=== PATIENT | male | born 1970 | race Two or more races ===

== ENCOUNTER 2018-04-22 16:51 | Inpatient (IN) | payer MEDICARE, MEDICAID ==
[~2018-04-22] VITALS: Ht 162.6 cm; Wt 80.0 kg
[~2018-04-22 16:51] MED LIST: ALBU18HF2 INH; ASPI-1265 PO; ATOR20TA66 PO; HCTZ25T PO; HYDR-4069 PO; HYDR50TA3 PO; LISI-600 PO; PRAZ1CAP5 PO
[2018-04-22 18:20] LABS: BASOPHILS % (AUTO) 0.1 % (0-1); EOSINOPHILS # (AUTO) 0.2 X10'3 (0-0.9); HEMATOCRIT 38.9 % (42.0-52.0); HEMOGLOBIN 13.4 g/dl (14.0-17.9); LYMPHOCYTES # (AUTO) 1.5 X10'3 (1.1-4.8); LYMPHOCYTES % (AUTO) 13.6 % (21-51); MEAN CORPUSCULAR HEMOGLOBIN 29.7 PG (27.0-31.0); MEAN CORPUSCULAR HGB CONC 34.5 % (33.0-36.5); MEAN CORPUSCULAR VOLUME 86.3 FL (78-98); MEAN PLATELET VOLUME 8.3 FL (7.4-10.4); MONOCYTES # (AUTO) 0.9 X10'3 (0-0.9); MONOCYTES % (AUTO) 8.5 % (2-12); NEUTROPHILS # (AUTO) 8.4 X10'3 (1.8-7.7); NEUTROPHILS % (AUTO) 75.8 % (42-75); PLATELET COUNT 332 X10'3 (140-440); RED BLOOD COUNT 4.51 X10'6 (4.70-6.10); RED CELL DISTRIBUTION WIDTH 13.4 % (11.5-14.5); WHITE BLOOD COUNT 11.1 X10'3 (4.5-11.0)
[2018-04-22 18:32] LABS: PARTIAL THROMBOPLASTIN TIME 23 SECONDS (22-32); PROTHROMBIN TIME 10.2 SECONDS (9.0-12.0)
[2018-04-22 18:36] LABS: ALANINE AMINOTRANSFERASE 47 U/L (12-78); ALBUMIN 3.4 G/DL (3.4-5.0); ALBUMIN/GLOBULIN RATIO 0.9 (1.1-1.5); ALKALINE PHOSPHATASE 76 IU/L (46-116); ANION GAP 8 (8-16); ASPARTATE AMINO TRANSFERASE 36 U/L (10-37); BILIRUBIN,TOTAL 0.3 MG/DL (0.1-1.0); BLOOD UREA NITROGEN 19 MG/DL (7-18); CHLORIDE 109 MMOL/L (99-107); CREATININE 1.19 MG/DL (0.60-1.10); GLUCOSE 93 MG/DL (70-104); SODIUM 148 MMOL/L (135-145); TOTAL CARBON DIOXIDE 30.7 MMOL/L (24-32); eGFR 65 ML/MIN
[2018-04-22 18:41] LABS: POTASSIUM 2.9 MMOL/L (3.5-5.1)
[2018-04-22] MEDS ORDERED: potassium Cl 20 mEq SR tablet PO STA (18:44)
[2018-04-22] MEDS ORDERED: heparin 10,000 units/1 ML INJ IV ONE (18:55)
[2018-04-22] MEDS ORDERED: heparin 10,000 units/1 ML INJ IV PRN (18:55)
[2018-04-22] MEDS ORDERED: CHLORTHALIDONE 50 MG (19:40)
[2018-04-22] MEDS ORDERED: LISINOPRIL 40 MG (19:40)
[2018-04-22] MEDS ORDERED: [UNRECOGNIZED DRUG - OTHER] (19:40)
[2018-04-22] MEDS ORDERED: AMLODIPINE 10 MG (19:40)
[2018-04-22] MEDS ORDERED: ATORVASTATIN TAB 40MG (19:40)
[2018-04-22] MEDS ORDERED: VENTOLIN HFA AER (19:40)
[2018-04-22] MEDS ORDERED: ASPI-100 PO (19:42)
[2018-04-22] MEDS ORDERED: mag hydrox/Alum hydrox/simeth 30ml oral suspension PO PRN (21:20)
[2018-04-22] MEDS ORDERED: magnesium hydroxide 30ml (MOM) UD suspension PO PRN (21:20)
[2018-04-22] MEDS ORDERED: acetaminophen 325mg tablet PO PRN (21:20)
[2018-04-22] MEDS ORDERED: ondansetron/PF 4mg/2ml inj IV PRN (21:20)
[2018-04-22] MEDS ORDERED: HYDR-4069 PO (21:29)
[2018-04-22] MEDS ORDERED: LISI40TA4 PO (21:29)
[2018-04-22] MEDS ORDERED: NITR0.4T51 SL (21:29)
[2018-04-22] MEDS ORDERED: CHLO50TA PO (21:29)
[2018-04-22] MEDS ORDERED: PRAZ1CAP5 PO (21:29)
[2018-04-22] MEDS ORDERED: ALBU18HF2 INH (21:29)
[2018-04-22] MEDS ORDERED: ATOR40TA72 PO (21:29)
[2018-04-22] MEDS ORDERED: AMLO10TA13 PO (21:29)
[2018-04-22 22:20] VITALS: BP 174/104
[2018-04-22] MEDS ORDERED: metoprolol tartrate 50mg tablet PO ONE (22:45)
[2018-04-22] MEDS ORDERED: potassium Cl 40MEQ/NS 500ml 500 ML IV PRN ×2 (22:50)
[2018-04-22] MEDS ORDERED: magnesium Cl slow-release 64mg tablet PO PRN (22:50)
[2018-04-22] MEDS ORDERED: magnesium/D5W IVPB 100 ML IV PRN (22:50)
[2018-04-22] MEDS ORDERED: magnesium 4gm in 100ml NS 100 ML IV PRN (22:50)
[2018-04-22] MEDS: potassium Cl 20 mEq SR tablet PO PRN (23:12)
[2018-04-23 03:00] VITALS: BP 141/72
[2018-04-23] MEDS: potassium Cl 20 mEq SR tablet PO PRN ×4 (04:35→17:18)
[2018-04-23] MEDS: albuterol 2.5 MG/3 ML nebule NEB PRN ×2 (04:38→20:35)
[2018-04-23 05:30] VITALS: BP 142/75
[2018-04-23 06:27] LABS: MAGNESIUM 1.8 MG/DL (1.5-2.4)
[2018-04-23] MEDS: enoxaparin 40mg/0.4ml syringe SUBCUT SCH (07:28)
[2018-04-23] MEDS ORDERED: metoprolol tartrate 50mg tablet PO SCH (08:00)
[2018-04-23] MEDS ORDERED: HYDROchlorothiazide 25mg tablet PO SCH (10:15)
[2018-04-23] MEDS: aspirin 81mg tablet.DR PO SCH (10:17)
[2018-04-23 11:00] VITALS: BP 173/94
[2018-04-23 15:00] VITALS: BP 153/67
[2018-04-23] MEDS ORDERED: nitroGLYCERIN 0.4mg SUBLingual tab SL PRN (18:25)
[2018-04-23 19:00] VITALS: BP 164/90
[2018-04-23] MEDS: prazosin 1mg capsule PO SCH (21:52)
[2018-04-23 23:00] VITALS: BP 148/73
[2018-04-23] MEDS: hydrALAZINE 25 MG tablet PO SCH (23:46)
[2018-04-24 03:00] VITALS: BP 154/76
[2018-04-24 05:20] LABS: MAGNESIUM 1.7 MG/DL (1.5-2.4); POTASSIUM 3.2 MMOL/L (3.5-5.1)
[2018-04-24 06:00] VITALS: BP 157/89
[2018-04-24] MEDS: enoxaparin 40mg/0.4ml syringe SUBCUT SCH (08:00)
[2018-04-24] MEDS: aspirin 325mg tablet PO SCH (08:00)
[2018-04-24] MEDS: albuterol 2.5 MG/3 ML nebule NEB PRN (08:48)
[2018-04-24] MEDS: isosorbide mononitrate 30mg tab.SR.24H PO SCH (08:56)
[2018-04-24] MEDS: aspirin 81mg tablet.DR PO SCH (08:56)
[2018-04-24] MEDS: prazosin 1mg capsule PO SCH ×2 (08:56→20:09)
[2018-04-24] MEDS: lisinopril 20mg tablet PO SCH (08:56)
[2018-04-24] MEDS: atorvastatin 20mg tablet PO SCH (08:56)
[2018-04-24] MEDS: potassium Cl 20 mEq SR tablet PO PRN ×2 (08:56→09:06)
[2018-04-24] MEDS: amLODIPine 5mg tablet PO SCH (08:56)
[2018-04-24] MEDS: hydrALAZINE 25 MG tablet PO SCH ×2 (08:57→16:06)
[2018-04-24] MEDS: chlorthalidone 25mg tablet PO SCH (08:57)
[2018-04-24] MEDS ORDERED: isosorbide mononitrate 30mg tab.SR.24H PO SCH (09:50)
[2018-04-24 11:00] VITALS: BP 148/82
[2018-04-24] MEDS ORDERED: LORazepam 0.5 MG tablet PO PRN (13:10)
[2018-04-24 15:00] VITALS: BP 140/84
[2018-04-24 18:00] VITALS: BP 126/78
[2018-04-24 22:00] VITALS: BP 140/75
[2018-04-25] MEDS: hydrALAZINE 25 MG tablet PO SCH ×2 (00:10→08:54)
[2018-04-25 02:00] VITALS: BP 129/69
[2018-04-25 05:21] LABS: MAGNESIUM 1.5 MG/DL (1.5-2.4); POTASSIUM 3.2 MMOL/L (3.5-5.1)
[2018-04-25 06:00] VITALS: BP 145/86
[2018-04-25] MEDS: enoxaparin 40mg/0.4ml syringe SUBCUT SCH (08:00)
[2018-04-25] MEDS: albuterol 2.5 MG/3 ML nebule NEB PRN (08:04)
[2018-04-25] MEDS: aspirin 325mg tablet PO SCH (08:53)
[2018-04-25] MEDS: isosorbide mononitrate 30mg tab.SR.24H PO SCH (08:54)
[2018-04-25] MEDS: chlorthalidone 25mg tablet PO SCH (08:54)
[2018-04-25] MEDS: atorvastatin 20mg tablet PO SCH (08:54)
[2018-04-25] MEDS: prazosin 1mg capsule PO SCH (08:54)
[2018-04-25] MEDS: potassium Cl 20 mEq SR tablet PO PRN ×2 (08:55→10:47)
[2018-04-25] MEDS: lisinopril 20mg tablet PO SCH (08:55)
[2018-04-25] MEDS: amLODIPine 5mg tablet PO SCH (08:55)
[2018-04-25] MEDS: aspirin 81mg tablet.DR PO SCH (08:55)
[2018-04-25 09:00] VITALS: BP 147/83
[2018-04-25] MEDS ORDERED: ATI0.5T PO (09:27)
[2018-04-25] MEDS ORDERED: ISOS30TA6 PO (09:27)
[2018-04-25 11:00] VITALS: BP 122/70
== END 2018-04-25 11:24 | disposition home or self-care (01) | DRG 641 ==
LOC: ER 16:51 → EEVIPCON 21:18 → ED HOLD 21:18 → PCU 3S 22:18 → OBSVTOIN 04-24 13:00
PROVIDERS: ADMIT Internal Medicine; ATTEND Family Medicine
DX: E87.6 Hypokalemia (principal); I10 Essential (primary) hypertension; E78.00 Pure hypercholesterolemia, unspecified; E78.5 Hyperlipidemia, unspecified; R00.1 Bradycardia, unspecified; F17.200 Nicotine dependence, unspecified, uncomplicated; I25.2 Old myocardial infarction; J45.909 Unspecified asthma, uncomplicated; Z82.49 Family history of ischemic heart disease and other diseases of the circulatory system; Z91.14 Patient's other noncompliance with medication regimen; Z79.899 Other long term (current) drug therapy
CPT/HCPCS: 36415; 71045; 80053; 83735; 84132; 84484; 85025; 85610; 85730; 87070; 93306; 94640; 94760; 99291; G0378; J1644; J1650; J3480

== ENCOUNTER 2018-09-23 08:58 | Emergency (ER) | payer MEDICARE, MEDICAID ==
[~2018-09-23] VITALS: Ht 162.6 cm; Wt 75.0 kg
[~2018-09-23 08:58] MED LIST changes: +AMLO10TA13 PO; +ASPI-100 PO; -ASPI-1265 PO; +ATI0.5T PO; -ATOR20TA66 PO; +ATOR40TA72 PO; +CHLO50TA PO; -HCTZ25T PO; -HYDR50TA3 PO; +ISOS30TA6 PO; -LISI-600 PO; +LISI40TA4 PO; +NITR0.4T51 SL
[2018-09-23 09:12] VITALS: BP 148/92
[2018-09-23] MEDS ORDERED: albuterol 2.5 MG/3 ML nebule NEB ONE (09:40)
[2018-09-23] MEDS ORDERED: ALBU18HF2 INH (09:42)
[2018-09-23] MEDS ORDERED: NAPR-56 PO (09:43)
== END 2018-09-23 10:39 | disposition home or self-care (01) ==
LOC: ER 09:00
DX: R05 Cough (principal); M76.62 Achilles tendinitis, left leg; J98.01 Acute bronchospasm; B34.9 Viral infection, unspecified; E78.00 Pure hypercholesterolemia, unspecified; I10 Essential (primary) hypertension; I25.2 Old myocardial infarction; Z79.82 Long term (current) use of aspirin; Z79.899 Other long term (current) drug therapy
CPT/HCPCS: 94640; 94760; 99283

== ENCOUNTER 2019-08-22 14:13 | Emergency (ER) | payer MEDICARE, MEDICAID ==
[~2019-08-22] VITALS: Ht 162.6 cm; Wt 82.0 kg
[2019-08-22 14:25] VITALS: BP 156/92
[2019-08-22] MEDS ORDERED: dexamethasone 4mg tablet PO ONE (15:40)
[2019-08-22] MEDS ORDERED: dexamethasone sod phosphate 10mg/ml inj PO ONE (15:45)
[2019-08-22] MEDS ORDERED: ALBU18HF2 INH (16:51)
[2019-08-22] MEDS ORDERED: BENZ-16 PO (16:51)
== END 2019-08-22 16:59 | disposition home or self-care (01) ==
LOC: ER 14:13
DX: J02.8 Acute pharyngitis due to other specified organisms (principal); B34.9 Viral infection, unspecified; E78.00 Pure hypercholesterolemia, unspecified; I10 Essential (primary) hypertension; I25.2 Old myocardial infarction; J45.909 Unspecified asthma, uncomplicated; Z79.82 Long term (current) use of aspirin; Z79.899 Other long term (current) drug therapy
CPT/HCPCS: 87081; 87880; 99283; J1100

== ENCOUNTER 2019-09-25 18:02 | Emergency (ER) | payer MEDICARE, MEDICAID ==
[~2019-09-25] VITALS: Ht 162.6 cm; Wt 88.0 kg
[2019-09-25] MEDS ORDERED: traMADol 50MG tablet PO ONE (18:40)
[2019-09-25] MEDS ORDERED: TRAM50TA2 PO (18:49)
[2019-09-25] MEDS ORDERED: ALBU8HFA PO (19:05)
[2019-09-25 19:11] VITALS: BP 155/72
== END 2019-09-25 19:19 | disposition home or self-care (01) ==
LOC: ER 18:03
DX: M70.22 Olecranon bursitis, left elbow (principal); Y93.89 Activity, other specified; E78.00 Pure hypercholesterolemia, unspecified; I10 Essential (primary) hypertension; I25.2 Old myocardial infarction; J45.909 Unspecified asthma, uncomplicated; Z79.82 Long term (current) use of aspirin; Z79.899 Other long term (current) drug therapy
CPT/HCPCS: 73080; 99284

== ENCOUNTER 2019-09-29 10:58 | Emergency (ER) | payer MEDICARE, MEDICAID ==
[~2019-09-29] VITALS: Ht 162.6 cm; Wt 80.0 kg
[~2019-09-29 10:58] MED LIST changes: +ALBU8HFA PO; +TRAM50TA2 PO
[2019-09-29 11:11] VITALS: BP 198/107
== END 2019-09-29 12:08 | disposition home or self-care (01) ==
LOC: ER 10:59
DX: S40.022D Contusion of left upper arm, subsequent encounter (principal); I10 Essential (primary) hypertension; E78.00 Pure hypercholesterolemia, unspecified; I25.2 Old myocardial infarction; J45.909 Unspecified asthma, uncomplicated; Z79.899 Other long term (current) drug therapy; Z79.82 Long term (current) use of aspirin; X58.XXXD Exposure to other specified factors, subsequent encounter
CPT/HCPCS: 99281

== ENCOUNTER 2019-10-04 18:11 | Emergency (ER) | payer MEDICARE, MEDICAID ==
[~2019-10-04] VITALS: Ht 162.6 cm; Wt 89.0 kg
[~2019-10-04 18:11] MED LIST changes: -TRAM50TA2 PO
[2019-10-04 19:17] LABS: BASOPHILS # (AUTO) 0.1 X10'3 (0-0.2); BASOPHILS % (AUTO) 0.7 % (0-1); EOSINOPHILS # (AUTO) 0.2 X10'3 (0-0.9); HEMOGLOBIN 14.9 g/dl (14.0-17.9); LYMPHOCYTES # (AUTO) 1.3 X10'3 (1.1-4.8); LYMPHOCYTES % (AUTO) 12.8 % (21-51); MEAN CORPUSCULAR HEMOGLOBIN 29.9 PG (27.0-31.0); MEAN CORPUSCULAR HGB CONC 33.8 g/dL (33.0-36.5); MEAN CORPUSCULAR VOLUME 88.4 FL (78-98); MEAN PLATELET VOLUME 8.6 FL (7.4-10.4); MONOCYTES # (AUTO) 1.1 X10'3 (0-0.9); MONOCYTES % (AUTO) 10.5 % (2-12); NEUTROPHILS # (AUTO) 7.5 X10'3 (1.8-7.7); PLATELET COUNT 296 X10'3 (140-440); RED BLOOD COUNT 4.98 X10'6 (4.70-6.10); RED CELL DISTRIBUTION WIDTH 13.9 % (11.5-14.5); WHITE BLOOD COUNT 10.2 X10'3 (4.5-11.0)
[2019-10-04 19:29] LABS: PARTIAL THROMBOPLASTIN TIME 24 SECONDS (22-32)
[2019-10-04 19:33] LABS: ALANINE AMINOTRANSFERASE 33 U/L (12-78); ALBUMIN 3.9 G/DL (3.4-5.0); ALKALINE PHOSPHATASE 74 IU/L (46-116); ANION GAP 8 (8-16); ASPARTATE AMINO TRANSFERASE 31 U/L (10-37); BILIRUBIN,TOTAL 0.3 MG/DL (0.1-1.0); BLOOD UREA NITROGEN 14 MG/DL (7-18); BUN/CREATININE RATIO 13.3 (5.4-32.0); CHLORIDE 108 MMOL/L (99-107); CREATININE 1.05 MG/DL (0.60-1.10); GLUCOSE 96 MG/DL (70-104); SODIUM 143 MMOL/L (135-145); TOTAL CARBON DIOXIDE 27.2 MMOL/L (24-32); TOTAL PROTEIN 7.9 G/DL (6.4-8.2); eGFR > 90 ML/MIN
[2019-10-04 19:35] LABS: POTASSIUM 4.2 MMOL/L (3.5-5.1)
[2019-10-04] MEDS ORDERED: morphine 4 MG/ML inj SYRINge IM ONE (20:55)
[2019-10-04] MEDS ORDERED: HYDROchlorothiazide 25mg tablet PO ONE (20:55)
[2019-10-04] MEDS ORDERED: hyDRALAzine 10mg tablet PO STA (21:30)
[2019-10-04] MEDS ORDERED: TRAM50TA2 PO (21:33)
[2019-10-04 21:54] VITALS: BP 189/118
[2019-10-05] MEDS ORDERED: hyDRALAzine 10mg tablet PO SCH
== END 2019-10-04 22:11 | disposition home or self-care (01) ==
LOC: ER 18:12
DX: S63.591A Other specified sprain of right wrist, initial encounter (principal); I10 Essential (primary) hypertension; E78.00 Pure hypercholesterolemia, unspecified; I25.2 Old myocardial infarction; J45.909 Unspecified asthma, uncomplicated; Z79.82 Long term (current) use of aspirin; Z79.899 Other long term (current) drug therapy; Y04.8XXA Assault by other bodily force, initial encounter; Y93.89 Activity, other specified; Y92.89 Other specified places as the place of occurrence of the external cause; Y99.8 Other external cause status
CPT/HCPCS: 29105; 36415; 73060; 73130; 80053; 83735; 83880; 84484; 85025; 85610; 85730; 93005; 96372; 99284; J2270

== ENCOUNTER 2019-10-08 11:43 | Emergency (ER) | payer MEDICARE, MEDICAID ==
[~2019-10-08] VITALS: Ht 162.6 cm; Wt 89.0 kg
[~2019-10-08 11:43] MED LIST changes: +TRAM50TA2 PO
[2019-10-08 11:45] VITALS: BP 202/105
[2019-10-08] MEDS ORDERED: LORazepam 1 MG tablet PO ONE (12:40)
--- NOTE | 2019-10-08 12:40 | NUR ---
ortho present in room
--- NOTE | 2019-10-08 13:07 | NUR ---
splint placed by energy and conservation technician per md order.
== END 2019-10-08 13:10 | disposition home or self-care (01) ==
LOC: ER 11:44
DX: S62.390D Other fracture of second metacarpal bone, right hand, subsequent encounter for fracture with routine healing (principal); S62.392D Other fracture of third metacarpal bone, right hand, subsequent encounter for fracture with routine healing; S62.394D Other fracture of fourth metacarpal bone, right hand, subsequent encounter for fracture with routine healing; S62.396D Other fracture of fifth metacarpal bone, right hand, subsequent encounter for fracture with routine healing; E78.00 Pure hypercholesterolemia, unspecified; I10 Essential (primary) hypertension; I25.2 Old myocardial infarction; J45.909 Unspecified asthma, uncomplicated; Z79.82 Long term (current) use of aspirin; Z79.899 Other long term (current) drug therapy; X58.XXXD Exposure to other specified factors, subsequent encounter
CPT/HCPCS: 29125; 99284

== ENCOUNTER 2019-11-04 15:04 | Outpatient (CLI) | payer MEDICARE, MEDICAID ==
[~2019-11-04 15:04] MED LIST changes: -ALBU8HFA PO; -TRAM50TA2 PO
== END 2019-11-04 16:00 | disposition home or self-care (01) ==
LOC: ORTHO 15:04
PROVIDERS: ATTEND Orthopaedic Surgery
DX: S62.392D Other fracture of third metacarpal bone, right hand, subsequent encounter for fracture with routine healing (principal); S62.394D Other fracture of fourth metacarpal bone, right hand, subsequent encounter for fracture with routine healing; I10 Essential (primary) hypertension; J45.909 Unspecified asthma, uncomplicated; X58.XXXD Exposure to other specified factors, subsequent encounter
CPT/HCPCS: 73130; G0463

== ENCOUNTER 2019-11-11 03:17 | Emergency (ER) | payer MEDICARE, MEDICAID ==
[~2019-11-11] VITALS: Ht 162.6 cm; Wt 79.5 kg
[2019-11-11] MEDS ORDERED: acetaminophen 325mg tablet PO STA (03:26)
[2019-11-11] MEDS ORDERED: ibuprofen tablet 400 MG TABLET PO ONE (04:15)
[2019-11-11] MEDS ORDERED: GUAI120L55 PO (05:09)
[2019-11-11 05:49] VITALS: BP 147/82
== END 2019-11-11 05:52 | disposition home or self-care (01) ==
LOC: ER 03:18
DX: J02.9 Acute pharyngitis, unspecified (principal); E78.00 Pure hypercholesterolemia, unspecified; I10 Essential (primary) hypertension; I25.2 Old myocardial infarction; J45.909 Unspecified asthma, uncomplicated; Z79.899 Other long term (current) drug therapy; Z79.82 Long term (current) use of aspirin
CPT/HCPCS: 71045; 87081; 87502; 87503; 87880; 99284

== ENCOUNTER 2019-11-12 11:24 | Emergency (ER) | payer MEDICARE, MEDICAID ==
[~2019-11-12] VITALS: Ht 162.6 cm; Wt 88.7 kg
[~2019-11-12 11:24] MED LIST changes: +GUAI120L55 PO
[2019-11-12] MEDS ORDERED: methylPREDNISolone sod succ 125mg/2ml vial IV ONE (13:15)
[2019-11-12] MEDS ORDERED: iohexol 300mg/ml 100ml inj. ONE (13:24)
[2019-11-12 14:15] LABS: BASOPHILS % (AUTO) 0.1 % (0-1); EOSINOPHILS % (AUTO) 0 % (0-6); HEMATOCRIT 38.4 % (42.0-52.0); HEMOGLOBIN 12.6 g/dl (14.0-17.9); LYMPHOCYTES # (AUTO) 0.7 X10'3 (1.1-4.8); LYMPHOCYTES % (AUTO) 2.5 % (21-51); MEAN CORPUSCULAR HEMOGLOBIN 28.6 PG (27.0-31.0); MEAN CORPUSCULAR HGB CONC 32.9 g/dL (33.0-36.5); MEAN PLATELET VOLUME 8.4 FL (7.4-10.4); MONOCYTES # (AUTO) 2.5 X10'3 (0-0.9); MONOCYTES % (AUTO) 8.9 % (2-12); NEUTROPHILS # (AUTO) 24.4 X10'3 (1.8-7.7); NEUTROPHILS % (AUTO) 88.5 % (42-75); PLATELET COUNT 199 X10'3 (140-440); RED BLOOD COUNT 4.41 X10'6 (4.70-6.10)
[2019-11-12 14:20] LABS: WHITE BLOOD COUNT 27.6 X10'3 (4.5-11.0)
[2019-11-12] MEDS ORDERED: normal saline 1000ML IV soln IVB ONE (14:25)
[2019-11-12] MEDS ORDERED: morphine 4 MG/ML inj SYRINge IV ONE (14:25)
[2019-11-12] MEDS ORDERED: clindamycin 600mg/D5W 50ml 50 ML IV ONE (14:25)
[2019-11-12] MEDS ORDERED: ondansetron/PF 4mg/2ml inj IV ONE (14:25)
[2019-11-12 14:40] LABS: ALANINE AMINOTRANSFERASE 49 U/L (12-78); ALBUMIN 3.1 G/DL (3.4-5.0); ALBUMIN/GLOBULIN RATIO 0.8 (1.1-1.5); ALKALINE PHOSPHATASE 66 IU/L (46-116); ANION GAP 3 (8-16); ASPARTATE AMINO TRANSFERASE 28 U/L (10-37); BLOOD UREA NITROGEN 26 MG/DL (7-18); BUN/CREATININE RATIO 21.3 (5.4-32.0); CALCIUM 8.8 MG/DL (8.5-10.1); CHLORIDE 105 MMOL/L (99-107); CREATININE 1.22 MG/DL (0.60-1.10); GLUCOSE 132 MG/DL (70-104); POTASSIUM 3.4 MMOL/L (3.5-5.1); SODIUM 140 MMOL/L (135-145); TOTAL CARBON DIOXIDE 31.9 MMOL/L (24-32); TOTAL PROTEIN 6.9 G/DL (6.4-8.2); eGFR 76 ML/MIN
[2019-11-12 14:52] LABS: TOTAL CELLS COUNTED 100
[2019-11-12 14:53] LABS: PLATELET ESTIMATE NORMAL
[2019-11-12 15:50] VITALS: BP 160/102
== END 2019-11-12 16:00 | disposition short-term general hospital (02) ==
LOC: ER 11:25
DX: J38.6 Stenosis of larynx (principal); R91.8 Other nonspecific abnormal finding of lung field; J02.9 Acute pharyngitis, unspecified; K02.9 Dental caries, unspecified; E78.00 Pure hypercholesterolemia, unspecified; I10 Essential (primary) hypertension; I25.2 Old myocardial infarction; J45.909 Unspecified asthma, uncomplicated; Z79.899 Other long term (current) drug therapy; Z79.82 Long term (current) use of aspirin
CPT/HCPCS: 36415; 70491; 80053; 85025; 96365; 96375; 99285; J2270; J2405; J2930; J7030; Q9967; J3490

== ENCOUNTER 2019-12-21 14:27 | Observation (INO) | payer MEDICARE, MEDICAID ==
[~2019-12-21] VITALS: Ht 162.6 cm; Wt 85.0 kg
--- NOTE | 2019-12-21 15:28 | NUR ---
, Ledy [phone]
[2019-12-21 15:41] LABS: BASOPHILS % (AUTO) 0.4 % (0-1); EOSINOPHILS # (AUTO) 0.1 X10'3 (0-0.9); EOSINOPHILS % (AUTO) 1.2 % (0-6); HEMATOCRIT 43.4 % (42.0-52.0); HEMOGLOBIN 14.5 g/dl (14.0-17.9); LYMPHOCYTES # (AUTO) 1.6 X10'3 (1.1-4.8); LYMPHOCYTES % (AUTO) 18.4 % (21-51); MEAN CORPUSCULAR HEMOGLOBIN 28.4 PG (27.0-31.0); MEAN CORPUSCULAR HGB CONC 33.3 g/dL (33.0-36.5); MEAN CORPUSCULAR VOLUME 85.3 FL (78-98); MEAN PLATELET VOLUME 8.8 FL (7.4-10.4); MONOCYTES # (AUTO) 1.4 X10'3 (0-0.9); MONOCYTES % (AUTO) 15.7 % (2-12); NEUTROPHILS # (AUTO) 5.6 X10'3 (1.8-7.7); NEUTROPHILS % (AUTO) 64.3 % (42-75); PLATELET COUNT 297 X10'3 (140-440); RED BLOOD COUNT 5.09 X10'6 (4.70-6.10); RED CELL DISTRIBUTION WIDTH 14.4 % (11.5-14.5); WHITE BLOOD COUNT 8.7 X10'3 (4.5-11.0)
[2019-12-21 15:54] LABS: ALANINE AMINOTRANSFERASE 35 U/L (12-78); ALBUMIN 3.7 G/DL (3.4-5.0); ALKALINE PHOSPHATASE 83 IU/L (46-116); ANION GAP 9 (8-16); ASPARTATE AMINO TRANSFERASE 24 U/L (10-37); BILIRUBIN,TOTAL 0.3 MG/DL (0.1-1.0); BLOOD UREA NITROGEN 16 MG/DL (7-18); CHLORIDE 107 MMOL/L (99-107); CREATININE 0.94 MG/DL (0.60-1.10); GLUCOSE 88 MG/DL (70-104); POTASSIUM 3.4 MMOL/L (3.5-5.1); SODIUM 145 MMOL/L (135-145); TOTAL CARBON DIOXIDE 28.9 MMOL/L (24-32); TOTAL PROTEIN 7.4 G/DL (6.4-8.2); eGFR > 90 ML/MIN
[2019-12-21] MEDS ORDERED: normal saline 1000ml 1,000 ML IV SCH (16:47)
[2019-12-21] MEDS ORDERED: magnesium 2GM in 50ml NS 50 ML IV PRN (16:50)
[2019-12-21] MEDS ORDERED: acetaminophen 325mg tablet PO PRN ×2 (16:50)
[2019-12-21] MEDS ORDERED: potassium Cl 20 mEq SR tablet PO PRN (16:50)
[2019-12-21] MEDS ORDERED: magnesium Cl slow-release 64mg tablet PO PRN (16:50)
[2019-12-21] MEDS ORDERED: morphine 2 MG/ML inj. syringe IV PRN (16:50)
[2019-12-21] MEDS ORDERED: ondansetron/PF 4mg/2ml inj IV PRN (16:50)
[2019-12-21] MEDS ORDERED: potassium CL 10mEq/100ml bag 100 ML IV PRN ×2 (16:50)
[2019-12-21] MEDS ORDERED: mag hydrox/Alum hydrox/simeth 30ml oral suspension PO PRN (16:50)
[2019-12-21] MEDS ORDERED: magnesium 4gm in 100ml NS 100 ML IV PRN (16:50)
[2019-12-21] MEDS ORDERED: labetalol 100mg tablet PO SCH (17:30)
[2019-12-21] MEDS ORDERED: labetalol 100mg tablet PO ONE (17:30)
[2019-12-21] MEDS ORDERED: nitroGLYCERIN 0.4mg SUBLingual tab SL PRN (18:15)
[2019-12-21] MEDS ORDERED: albuterol 2.5 MG/3 ML nebule NEB PRN (18:20)
[2019-12-21] MEDS: K and/or MAG REPLACEMENT MC SCH (20:00)
[2019-12-21] MEDS: prazosin 1mg capsule PO SCH (20:12)
[2019-12-21] MEDS: heparin, porcine 5000 units/ml vial SQ SCH (20:12)
--- NOTE | 2019-12-21 20:20 | NUR ---
Patient laying comfortably on gurney, at bedside. Pending admit to the floor
[2019-12-21] MEDS ORDERED: temazepam 15mg capsule PO PRN (21:00)
[2019-12-21 23:20] VITALS: BP 188/102
[2019-12-21] MEDS: hydrALAZINE 25 MG tablet PO SCH (23:53)
[2019-12-22 03:58] LABS: BASOPHILS % (AUTO) 0.3 % (0-1); EOSINOPHILS # (AUTO) 0.1 X10'3 (0-0.9); EOSINOPHILS % (AUTO) 1.1 % (0-6); HEMATOCRIT 39.9 % (42.0-52.0); HEMOGLOBIN 13.4 g/dl (14.0-17.9); LYMPHOCYTES # (AUTO) 2.2 X10'3 (1.1-4.8); LYMPHOCYTES % (AUTO) 23.7 % (21-51); MEAN CORPUSCULAR HEMOGLOBIN 28.6 PG (27.0-31.0); MEAN CORPUSCULAR HGB CONC 33.6 g/dL (33.0-36.5); MEAN PLATELET VOLUME 8.8 FL (7.4-10.4); MONOCYTES # (AUTO) 1.4 X10'3 (0-0.9); MONOCYTES % (AUTO) 15.4 % (2-12); NEUTROPHILS # (AUTO) 5.5 X10'3 (1.8-7.7); NEUTROPHILS % (AUTO) 59.5 % (42-75); PLATELET COUNT 274 X10'3 (140-440); RED BLOOD COUNT 4.69 X10'6 (4.70-6.10); RED CELL DISTRIBUTION WIDTH 14.2 % (11.5-14.5); WHITE BLOOD COUNT 9.3 X10'3 (4.5-11.0)
--- NOTE | 2019-12-22 04:00 | NUR ---
paged dr. suh 12 hour trop 0.09.bp 145/71 hr 55.denies cp.
[2019-12-22 04:06] LABS: ALBUMIN 3.2 G/DL (3.4-5.0); ANION GAP 5 (8-16); BLOOD UREA NITROGEN 19 MG/DL (7-18); CALCIUM 8.5 MG/DL (8.5-10.1); CHLORIDE 109 MMOL/L (99-107); CHOL/HDL RATIO 4.4 (0.00-4.99); CHOLESTEROL 170 MG/DL (0-200); GLUCOSE 115 MG/DL (70-104); HDL CHOLESTEROL 39 MG/DL (35-60); LDL CHOLESTEROL 114 MG/DL (50-100); MAGNESIUM 1.9 MG/DL (1.5-2.4); POTASSIUM 3.2 MMOL/L (3.5-5.1); SODIUM 143 MMOL/L (135-145); TOTAL CARBON DIOXIDE 29.5 MMOL/L (24-32); TRIGLYCERIDES 127 MG/DL (20-135); eGFR > 90 ML/MIN
[2019-12-22] MEDS: potassium Cl 20 mEq SR tablet PO PRN ×3 (04:36→16:24)
[2019-12-22 06:00] VITALS: BP 145/71
--- NOTE | 2019-12-22 06:40 | NUR ---
Patient in room ORTHO 4010. I have received report from ELAINE Fitch and had the opportunity to ask questions and assume patient care.
[2019-12-22] MEDS: K and/or MAG REPLACEMENT MC SCH ×2 (07:16→20:00)
[2019-12-22] MEDS ORDERED: chlorthalidone 25mg tablet PO SCH (08:00)
[2019-12-22] MEDS ORDERED: amLODIPine 5mg tablet PO SCH (08:00)
[2019-12-22] MEDS ORDERED: atorvastatin 20mg tablet PO SCH (08:00)
[2019-12-22] MEDS ORDERED: lisinopril 20mg tablet PO SCH (08:00)
[2019-12-22] MEDS ORDERED: aspirin 325mg tablet PO SCH (08:30)
[2019-12-22] MEDS: hydrALAZINE 25 MG tablet PO SCH ×3 (08:51→23:46)
[2019-12-22] MEDS: prazosin 1mg capsule PO SCH ×2 (08:52→19:37)
[2019-12-22] MEDS: heparin, porcine 5000 units/ml vial SQ SCH ×2 (09:00→19:37)
[2019-12-22] MEDS ORDERED: metoprolol tartrate 1mg/ml inj IV PRN (09:50)
[2019-12-22] MEDS ORDERED: regadenoson 0.4mg/5ml syringe IV ONE (09:50)
[2019-12-22] MEDS ORDERED: aminophylline 250mg/10ml inj. IV PRN (09:50)
[2019-12-22] MEDS ORDERED: nitroGLYCERIN 0.4mg SUBLingual tab SL PRN (09:50)
[2019-12-22 10:00] VITALS: BP 132/79
[2019-12-22 10:06] LABS: TOTAL CELLS COUNTED 100
[2019-12-22 10:07] LABS: PLATELET ESTIMATE NORMAL
[2019-12-22 18:01] VITALS: BP 126/67
--- NOTE | 2019-12-22 18:11 | NUR ---
Problems reprioritized. Patient report given, questions answered & plan of care reviewed with ELAINE Albarran.
[2019-12-22 22:00] VITALS: BP 140/68
[2019-12-23] VITALS (12 sets, daily range): BP systolic 99–184; BP diastolic 59–105
--- NOTE | 2019-12-23 01:08 | NUR ---
Received patient report from ELAINE Pina. Assumed patient care.
--- NOTE | 2019-12-23 02:34 | NUR ---
Vitals entered at 2:00 were entered on wrong patient, they are not vitals for Jackson Rico.
[2019-12-23 06:15] LABS: BASOPHILS % (AUTO) 0.4 % (0-1); EOSINOPHILS # (AUTO) 0.1 X10'3 (0-0.9); EOSINOPHILS % (AUTO) 1.5 % (0-6); HEMATOCRIT 41.6 % (42.0-52.0); HEMOGLOBIN 13.9 g/dl (14.0-17.9); LYMPHOCYTES # (AUTO) 1.8 X10'3 (1.1-4.8); LYMPHOCYTES % (AUTO) 22.4 % (21-51); MEAN CORPUSCULAR HEMOGLOBIN 28.3 PG (27.0-31.0); MEAN CORPUSCULAR HGB CONC 33.4 g/dL (33.0-36.5); MEAN CORPUSCULAR VOLUME 84.7 FL (78-98); MEAN PLATELET VOLUME 8.8 FL (7.4-10.4); MONOCYTES # (AUTO) 1.1 X10'3 (0-0.9); MONOCYTES % (AUTO) 13.9 % (2-12); NEUTROPHILS % (AUTO) 61.8 % (42-75); PLATELET COUNT 281 X10'3 (140-440); RED BLOOD COUNT 4.91 X10'6 (4.70-6.10); RED CELL DISTRIBUTION WIDTH 14.6 % (11.5-14.5); WHITE BLOOD COUNT 8.1 X10'3 (4.5-11.0)
[2019-12-23 06:18] LABS: ALBUMIN 3.3 G/DL (3.4-5.0); ANION GAP 8 (8-16); BLOOD UREA NITROGEN 16 MG/DL (7-18); BUN/CREATININE RATIO 16.5 (5.4-32.0); CALCIUM 8.8 MG/DL (8.5-10.1); CHLORIDE 107 MMOL/L (99-107); CREATININE 0.97 MG/DL (0.60-1.10); GLUCOSE 116 MG/DL (70-104); MAGNESIUM 1.7 MG/DL (1.5-2.4); POTASSIUM 3.4 MMOL/L (3.5-5.1); SODIUM 142 MMOL/L (135-145); TOTAL CARBON DIOXIDE 27.3 MMOL/L (24-32); eGFR > 90 ML/MIN
--- NOTE | 2019-12-23 06:39 | NUR ---
Patient report given, questions answered and plan of care reviewed with ELAINE Mercado.
[2019-12-23] MEDS ORDERED: regadenoson 0.4mg/5ml syringe IV ONE (08:00)
[2019-12-23] MEDS: K and/or MAG REPLACEMENT MC SCH (08:00)
--- NOTE | 2019-12-23 10:00 | NUR ---
Patient to stress test, via wheelchair.
--- NOTE | 2019-12-23 11:36 | NUR ---
Patient back from Stress test.
== END 2019-12-23 16:00 | disposition home or self-care (01) ==
LOC: ER 14:27 → ED HOLD 16:47 → INTOOBSV 16:55 → UNDOADMOB 16:55 → ED HOLD 16:55 → ORTHO 4S 23:05 → ED HOLD 23:05 → INTOOBSV 12-22 14:30 → OBSVTOIN 12-22 14:30 → ORTHO 4S 12-23 02:00 → UNDODISIN 12-23 16:00
PROVIDERS: ADMIT Internal Medicine; ATTEND Internal Medicine
DX: I21.A1 Myocardial infarction type 2 (principal); I10 Essential (primary) hypertension; E78.5 Hyperlipidemia, unspecified; N40.0 Benign prostatic hyperplasia without lower urinary tract symptoms; E78.00 Pure hypercholesterolemia, unspecified; I25.2 Old myocardial infarction; J45.909 Unspecified asthma, uncomplicated; I24.9 Acute ischemic heart disease, unspecified; Z79.82 Long term (current) use of aspirin; Z79.899 Other long term (current) drug therapy
CPT/HCPCS: 36415; 71045; 78452; 80048; 80053; 80061; 83735; 84484; 85025; 87081; 93005; 93017; 93306; 96372; 96374; 99285; A9500; G0378; J1644; J2405; J2785; J7030

== ENCOUNTER 2020-04-16 06:36 | Emergency (ER) | payer MEDICARE, MEDICAID ==
[~2020-04-16] VITALS: Ht 162.6 cm; Wt 85.5 kg
[~2020-04-16 06:36] MED LIST changes: -ATI0.5T PO; -GUAI120L55 PO; -ISOS30TA6 PO
[2020-04-16 06:38] VITALS: BP 120/72
[2020-04-16] MEDS ORDERED: ibuprofen 200mg tablet PO ONE (06:45)
== END 2020-04-16 08:31 | disposition home or self-care (01) ==
LOC: ER 06:36
DX: M17.10 Unilateral primary osteoarthritis, unspecified knee (principal); M25.562 Pain in left knee; E78.00 Pure hypercholesterolemia, unspecified; I10 Essential (primary) hypertension; I25.2 Old myocardial infarction; J45.909 Unspecified asthma, uncomplicated; Z79.82 Long term (current) use of aspirin; Z79.899 Other long term (current) drug therapy
CPT/HCPCS: 73564; 99283

== ENCOUNTER 2024-01-31 11:52 | Emergency (ER) | payer MEDICARE, MEDICAID ==
[~2024-01-31] VITALS: Ht 162.6 cm; Wt 61.6 kg
[~2024-01-31 11:52] MED LIST changes: -AMLO10TA13 PO; +AMOX-580 PO; -ASPI-100 PO; +ASPI-1071 PO; -ATOR40TA72 PO; +BUDE10.22 PO; +CHLO25TA11 PO; -CHLO50TA PO; +DOXY-411 PO; +FLUT16SP26 BOTHNARES; +HYDR-3964 PO; -HYDR-4069 PO; +INSU100I29 SQ; +LACT1CAP76 PO; +LISI40TA13 PO; -LISI40TA4 PO; +LORA10TA7 PO; +METF-1203 PO; +NOVLG SQ; +POTA-207 PO; -PRAZ1CAP5 PO
[2024-01-31 11:55] VITALS: BP 184/116; PULSE 61; TEMP 98.4; O2SAT 99
[2024-01-31 12:24] VITALS: RESP 16
[2024-01-31] MEDS: ketorolac tromethamine 15mg/ml inj. IM ONE (12:24)
== END 2024-01-31 12:42 | disposition home or self-care (01) ==
LOC: ER 11:53
DX: M25.561 Pain in right knee (principal); G89.29 Other chronic pain; I25.10 Atherosclerotic heart disease of native coronary artery without angina pectoris; E78.00 Pure hypercholesterolemia, unspecified; I10 Essential (primary) hypertension; I25.2 Old myocardial infarction; J45.909 Unspecified asthma, uncomplicated
CPT/HCPCS: 29505; 96372; 99283; J1885

== ENCOUNTER 2024-04-25 22:55 | Inpatient (IN) | payer MEDICAID, MEDICARE ==
[~2024-04-25] VITALS: Ht 162.6 cm; Wt 69.0 kg
[2024-04-25 23:36] LABS: BILIRUBIN,URINE NEGATIVE (Neg); CLARITY,URINE CLEAR (Clear); COLOR,URINE STRAW (Yellow); GLUCOSE, URINE >=1000 mg/dl (Neg); KETONES,URINE 15 mg/dl (Neg); LEUKOCYTE ESTERASE ,URINE NEGATIVE (Neg); NITRITES, URINE NEGATIVE (Neg); OCCULT BLOOD,URINE NEGATIVE (Neg); PROTEIN,URINE NEGATIVE (Neg); UROBILINOGEN,URINE 0.2 E.U/dL (0.2-1.0)
[2024-04-25 23:38] LABS: BASOPHILS # (AUTO) 0.1 X10'3 (0-0.2); BASOPHILS % (AUTO) 0.8 % (0-1); EOSINOPHILS # (AUTO) 0.1 X10'3 (0-0.9); EOSINOPHILS % (AUTO) 1.5 % (0-6); HEMATOCRIT 38.9 % (42.0-52.0); HEMOGLOBIN 13.2 g/dl (14.0-17.9); LYMPHOCYTES # (AUTO) 1.7 X10'3 (1.1-4.8); LYMPHOCYTES % (AUTO) 20.3 % (21-51); MEAN CORPUSCULAR VOLUME 85.4 FL (78-98); MEAN PLATELET VOLUME 9.8 FL (7.4-10.4); MONOCYTES # (AUTO) 0.7 X10'3 (0-0.9); MONOCYTES % (AUTO) 8.7 % (2-12); NEUTROPHILS # (AUTO) 5.9 X10'3 (1.8-7.7); NEUTROPHILS % (AUTO) 68.7 % (42-75); PLATELET COUNT 286 X10'3 (140-440); RED BLOOD COUNT 4.56 X10'6 (4.70-6.10); RED CELL DISTRIBUTION WIDTH 13.5 % (11.5-14.5); WHITE BLOOD COUNT 8.6 X10'3 (4.5-11.0)
[2024-04-25 23:41] LABS: UA COLLECTION TYPE CLN CATCH MIDSTREAM
[2024-04-25 23:42] LABS: BACTERIA,URINE FEW /HPF (Neg); RBC,URINE NONE SEEN /HPF (0-2); SQUAMOUS EPITHELIAL CELL,UR NONE SEEN /LPF (FEW); WBC,URINE NONE SEEN /HPF (0-4)
[2024-04-25 23:52] LABS: ALANINE AMINOTRANSFERASE 31 U/L (12-78); ALBUMIN 3.2 G/DL (3.4-5.0); ALKALINE PHOSPHATASE 102 IU/L (46-116); ANION GAP 9 (8-16); ASPARTATE AMINO TRANSFERASE 26 U/L (10-37); BILIRUBIN,TOTAL 0.5 MG/DL (0.1-1.0); BLOOD UREA NITROGEN 17 MG/DL (7-18); CALCIUM 8.9 MG/DL (8.5-10.1); CHLORIDE 98 MMOL/L (99-107); CREATININE 1.06 MG/DL (0.60-1.10); POTASSIUM 3.4 MMOL/L (3.5-5.1); SODIUM 134 MMOL/L (135-145); TOTAL CARBON DIOXIDE 26.6 MMOL/L (24-32); TOTAL PROTEIN 6.5 G/DL (6.4-8.2); eCRCL 64 ML/MIN; eGFR 88 ML/MIN
[2024-04-25 23:58] LABS: GLUCOSE 555 MG/DL (70-104)
[2024-04-26] VITALS (7 sets, daily range): BP systolic 140–171; BP diastolic 83–90; PULSE 50–63; RESP 14–16; TEMP 97.2–98.5; O2SAT 95–98
[2024-04-26] MEDS: insulin regular, human 10 units/0.1 ml syringe SQ ONE (01:05)
[2024-04-26] MEDS: normal saline 1000ML IV soln IVB ONE (01:37)
[2024-04-26 02:58] LABS: ACETONE SMALL (NEGATIVE)
[2024-04-26] MEDS: insulin glargine (Lantus) pen - multi-dose SQ ONE (03:15)
[2024-04-26] MEDS: aspirin 81mg tab.chew PO ONE (04:35)
[2024-04-26] MEDS ORDERED: magnesium 4gm in 100ml NS 100 ML IV PRN (05:20)
[2024-04-26] MEDS ORDERED: magnesium hydroxide 30ml (MOM) UD suspension PO PRN (05:20)
[2024-04-26] MEDS ORDERED: bisacodyl 10mg suppository rectal RC PRN (05:20)
[2024-04-26] MEDS ORDERED: potassium Cl 20 mEq SR tablet PO PRN (05:20)
[2024-04-26] MEDS ORDERED: magnesium 2GM in 50ml NS 50 ML IV PRN (05:20)
[2024-04-26] MEDS ORDERED: HYDROcodone/acetaminophen 10/325mg tab PO PRN (05:20)
[2024-04-26] MEDS ORDERED: HYDROcodone/acetaminophen 5mg/325mg tablet PO PRN (05:20)
[2024-04-26] MEDS ORDERED: potassium Cl 40MEQ/1/2NS 520ml 520 ML IV PRN (05:20)
[2024-04-26] MEDS ORDERED: acetaminophen 325mg tablet PO PRN ×2 (05:20)
[2024-04-26] MEDS ORDERED: magnesium Cl slow-release 64mg tablet PO PRN (05:20)
[2024-04-26] MEDS ORDERED: ondansetron 4mg rapidly disintigrating tab PO PRN (05:20)
[2024-04-26] MEDS ORDERED: ondansetron/PF 4mg/2ml inj IV PRN (05:20)
[2024-04-26] MEDS ORDERED: mag hydrox/Alum hydrox/simeth 30ml oral suspension PO PRN (05:20)
[2024-04-26] MEDS ORDERED: dextrose 50%-water 50ml dispensing syringe IV PRN ×2 (05:25)
[2024-04-26] MEDS ORDERED: glucagon, human recombinant 1mg kit SUBCUT PRN (05:25)
[2024-04-26] MEDS ORDERED: DEXTROSE 15 GM of carb/4 tabs (each vial/BOTTLE has 4 tablets) PO PRN ×2 (05:25)
[2024-04-26] MEDS: INSULIN LISPRO 100 UNIT/ML INSULN.PEN MULTI-DOSE SQ SCH ×2 (07:00→09:37)
[2024-04-26 07:36] LABS: HEMOGLOBIN A1C > 12.0 % (4.5-6.2)
[2024-04-26] MEDS: docusate sod 100mg capsule PO SCH (08:00)
[2024-04-26] MEDS: K and/or MAG REPLACEMENT MC SCH (08:00)
[2024-04-26] MEDS: normal saline 1000ml 1,000 ML IV SCH (10:58)
[2024-04-26] MEDS: hydrALAZINE 20mg/ml inj. IV PRN (17:38)
[2024-04-26] MEDS: enoxaparin 40mg/0.4ml syringe SQ SCH (19:24)
[2024-04-26] MEDS: insulin glargine (Lantus) pen - multi-dose SQ SCH (21:10)
[2024-04-27 06:00] VITALS: BP 149/76; PULSE 49; RESP 18; TEMP 97.7; O2SAT 98
[2024-04-27 06:13] LABS: BASOPHILS % (AUTO) 0.6 % (0-1); EOSINOPHILS # (AUTO) 0.2 X10'3 (0-0.9); EOSINOPHILS % (AUTO) 2.1 % (0-6); HEMATOCRIT 39.3 % (42.0-52.0); HEMOGLOBIN 13.2 g/dl (14.0-17.9); LYMPHOCYTES # (AUTO) 1.7 X10'3 (1.1-4.8); LYMPHOCYTES % (AUTO) 21.4 % (21-51); MEAN CORPUSCULAR HEMOGLOBIN 28.6 PG (27.0-31.0); MEAN CORPUSCULAR HGB CONC 33.6 g/dL (33.0-36.5); MEAN CORPUSCULAR VOLUME 85.2 FL (78-98); MEAN PLATELET VOLUME 9.5 FL (7.4-10.4); MONOCYTES # (AUTO) 0.7 X10'3 (0-0.9); MONOCYTES % (AUTO) 8.7 % (2-12); NEUTROPHILS # (AUTO) 5.5 X10'3 (1.8-7.7); NEUTROPHILS % (AUTO) 67.2 % (42-75); PLATELET COUNT 290 X10'3 (140-440); RED BLOOD COUNT 4.61 X10'6 (4.70-6.10); RED CELL DISTRIBUTION WIDTH 13.6 % (11.5-14.5); WHITE BLOOD COUNT 8.1 X10'3 (4.5-11.0)
[2024-04-27 06:44] LABS: ALANINE AMINOTRANSFERASE 26 U/L (12-78); ALBUMIN 2.7 G/DL (3.4-5.0); ALBUMIN/GLOBULIN RATIO 0.9 (1.1-1.5); ALKALINE PHOSPHATASE 78 IU/L (46-116); ANION GAP 8 (8-16); ASPARTATE AMINO TRANSFERASE 16 U/L (10-37); BILIRUBIN,TOTAL 0.6 MG/DL (0.1-1.0); BLOOD UREA NITROGEN 8 MG/DL (7-18); BUN/CREATININE RATIO 12.9 (10.0-20.0); CALCIUM 8.1 MG/DL (8.5-10.1); CHLORIDE 106 MMOL/L (99-107); CHOL/HDL RATIO 2.3 (0.00-4.99); CHOLESTEROL 126 MG/DL (0-200); CREATININE 0.62 MG/DL (0.60-1.10); GLUCOSE 234 MG/DL (70-104); HDL CHOLESTEROL 56 MG/DL (35-60); LDL CHOLESTEROL 59 MG/DL (50-100); MAGNESIUM 1.5 MG/DL (1.5-2.4); PHOSPHORUS 2.7 MG/DL (2.3-4.5); SODIUM 142 MMOL/L (135-145); TOTAL CARBON DIOXIDE 27.9 MMOL/L (24-32); TOTAL PROTEIN 5.6 G/DL (6.4-8.2); TRIGLYCERIDES 60 MG/DL (20-135); eCRCL 114 ML/MIN; eGFR > 90 ML/MIN
[2024-04-27 06:49] LABS: POTASSIUM 2.8 MMOL/L (3.5-5.1)
[2024-04-27] MEDS: potassium Cl 20 mEq SR tablet PO PRN (07:06)
[2024-04-27 08:00] VITALS: RESP 17
[2024-04-27 09:33] VITALS: BP 149/78; PULSE 77
[2024-04-27 09:34] VITALS: BP 156/88; PULSE 82
[2024-04-27 09:35] VITALS: BP 155/80; PULSE 89
[2024-04-27] MEDS ORDERED: INSU100I29 SQ (11:49)
[2024-04-27] MEDS ORDERED: NOVLG SQ (11:49)
== END 2024-04-27 14:50 | disposition home or self-care (01) | DRG 420 ==
LOC: ER 22:56 → ED HOLD 04-26 05:02 → ORTHO 4S 04-26 10:20
PROVIDERS: ADMIT Internal Medicine Pulmonary Disease; ATTEND Internal Medicine
DX: E11.65 Type 2 diabetes mellitus with hyperglycemia (principal); E78.5 Hyperlipidemia, unspecified; R35.0 Frequency of micturition; I25.10 Atherosclerotic heart disease of native coronary artery without angina pectoris; I10 Essential (primary) hypertension; E87.6 Hypokalemia; I25.2 Old myocardial infarction; Z79.4 Long term (current) use of insulin
CPT/HCPCS: 36415; 71045; 80053; 80061; 81001; 82009; 82948; 83036; 83735; 84100; 84484; 85025; 87081; 99285; A6446; A6449; G0378; J0360; J1650; J1815; J7030

== ENCOUNTER 2024-08-06 02:05 | Emergency (ER) | payer MEDICAID ==
[~2024-08-06] VITALS: Ht 160 cm; Wt 63.6 kg
[~2024-08-06 02:05] MED LIST changes: -AMOX-580 PO; -DOXY-411 PO; -HYDR-3964 PO; -POTA-207 PO
[2024-08-06 02:07] VITALS: BP 186/107; PULSE 59; RESP 18; TEMP 98; O2SAT 98
== END 2024-08-06 03:23 | disposition home or self-care (01) ==
LOC: EEVIPCON 02:06 → ER 02:06
DX: S01.01XA Laceration without foreign body of scalp, initial encounter (principal); I10 Essential (primary) hypertension; E78.00 Pure hypercholesterolemia, unspecified; E11.9 Type 2 diabetes mellitus without complications; I21.9 Acute myocardial infarction, unspecified; I25.10 Atherosclerotic heart disease of native coronary artery without angina pectoris; J45.909 Unspecified asthma, uncomplicated; Z79.899 Other long term (current) drug therapy; Z79.82 Long term (current) use of aspirin; Z79.4 Long term (current) use of insulin; Z86.73 Personal history of transient ischemic attack (TIA), and cerebral infarction without residual deficits; W26.0XXA Contact with knife, initial encounter; Y93.89 Activity, other specified; Y92.89 Other specified places as the place of occurrence of the external cause; Y99.8 Other external cause status
CPT/HCPCS: 99281

== ENCOUNTER → 2024-11-04 | Emergency (ER) | payer MEDICAID ==
[~2024-11-04] VITALS: Ht 162.6 cm; Wt 54.9 kg
[~2024-11-04] MED LIST changes: +IBUP-1984 PO; +LIDO700A32 TD; +LIDO700A32 TOP
[2024-11-04 09:18] VITALS: BP 161/109; PULSE 65; RESP 18; O2SAT 97
[2024-11-04 09:50] VITALS: TEMP 97.3
== END | disposition home or self-care (01) ==
LOC: ER 09:16
DX: G89.29 Other chronic pain (principal); M25.511 Pain in right shoulder; E11.9 Type 2 diabetes mellitus without complications; E78.00 Pure hypercholesterolemia, unspecified; I10 Essential (primary) hypertension; I25.10 Atherosclerotic heart disease of native coronary artery without angina pectoris; J45.909 Unspecified asthma, uncomplicated; Z86.73 Personal history of transient ischemic attack (TIA), and cerebral infarction without residual deficits; Z79.82 Long term (current) use of aspirin
CPT/HCPCS: 73030; 99283; A4565

== ENCOUNTER 2024-11-08 00:49 | Emergency (ER) | payer MEDICAID ==
[~2024-11-08] VITALS: Ht 162.6 cm; Wt 60.5 kg
[~2024-11-08 00:49] MED LIST changes: -IBUP-1984 PO; -LIDO700A32 TD
[2024-11-08 02:09] LABS: BASOPHILS # (AUTO) 0.1 X10'3 (0-0.2); BASOPHILS % (AUTO) 0.7 % (0-1); EOSINOPHILS # (AUTO) 0.3 X10'3 (0-0.9); EOSINOPHILS % (AUTO) 3.4 % (0-6); HEMATOCRIT 40.8 % (42.0-52.0); HEMOGLOBIN 13.8 g/dl (14.0-17.9); LYMPHOCYTES # (AUTO) 1.4 X10'3 (1.1-4.8); LYMPHOCYTES % (AUTO) 15.6 % (21-51); MEAN CORPUSCULAR HEMOGLOBIN 29.3 PG (27.0-31.0); MEAN CORPUSCULAR HGB CONC 33.9 g/dL (33.0-36.5); MEAN CORPUSCULAR VOLUME 86.5 FL (78-98); MONOCYTES # (AUTO) 0.7 X10'3 (0-0.9); MONOCYTES % (AUTO) 7.9 % (2-12); NEUTROPHILS # (AUTO) 6.6 X10'3 (1.8-7.7); NEUTROPHILS % (AUTO) 72.4 % (42-75); PLATELET COUNT 305 X10'3 (140-440); RED BLOOD COUNT 4.71 X10'6 (4.70-6.10); RED CELL DISTRIBUTION WIDTH 13.5 % (11.5-14.5); WHITE BLOOD COUNT 9.1 X10'3 (4.5-11.0)
[2024-11-08 02:14] LABS: BILIRUBIN,URINE NEGATIVE (Neg); CLARITY,URINE CLEAR (Clear); COLOR,URINE YELLOW (Yellow); GLUCOSE, URINE >=1000 mg/dl (Neg); KETONES,URINE 15 mg/dl (Neg); LEUKOCYTE ESTERASE ,URINE NEGATIVE (Neg); NITRITES, URINE NEGATIVE (Neg); OCCULT BLOOD,URINE NEGATIVE (Neg); PROTEIN,URINE NEGATIVE (Neg); UROBILINOGEN,URINE 0.2 E.U/dL (0.2-1.0)
[2024-11-08 02:25] LABS: ALANINE AMINOTRANSFERASE 27 U/L (12-78); ALBUMIN 3.3 G/DL (3.4-5.0); ALBUMIN/GLOBULIN RATIO 1.1 (1.1-1.5); ALKALINE PHOSPHATASE 91 IU/L (46-116); ANION GAP 10 (8-16); ASPARTATE AMINO TRANSFERASE 11 U/L (10-37); BILIRUBIN,TOTAL 0.5 MG/DL (0.1-1.0); BLOOD UREA NITROGEN 16 MG/DL (7-18); BUN/CREATININE RATIO 22.2 (10.0-20.0); CHLORIDE 102 MMOL/L (99-107); CREATININE 0.72 MG/DL (0.60-1.10); POTASSIUM 3.8 MMOL/L (3.5-5.1); SODIUM 138 MMOL/L (135-145); TOTAL CARBON DIOXIDE 26.4 MMOL/L (24-32); TOTAL PROTEIN 6.3 G/DL (6.4-8.2); eCRCL 98 ML/MIN; eGFR > 90 ML/MIN
[2024-11-08 02:31] LABS: UA COLLECTION TYPE CLN CATCH MIDSTREAM
[2024-11-08 02:32] LABS: BACTERIA,URINE NONE SEEN /HPF (Neg); RBC,URINE NONE SEEN /HPF (0-2); SQUAMOUS EPITHELIAL CELL,UR NONE SEEN /LPF (FEW); WBC,URINE NONE SEEN /HPF (0-4)
[2024-11-08 02:43] LABS: GLUCOSE 449 MG/DL (70-104)
[2024-11-08 02:59] VITALS: BP 146/99; PULSE 67; RESP 15; TEMP 98.3; O2SAT 100
== END 2024-11-08 03:06 | disposition home or self-care (01) ==
LOC: ER 00:50
DX: E11.649 Type 2 diabetes mellitus with hypoglycemia without coma (principal); E78.00 Pure hypercholesterolemia, unspecified; I10 Essential (primary) hypertension; J45.909 Unspecified asthma, uncomplicated; I25.10 Atherosclerotic heart disease of native coronary artery without angina pectoris; Z86.73 Personal history of transient ischemic attack (TIA), and cerebral infarction without residual deficits; Z79.82 Long term (current) use of aspirin
CPT/HCPCS: 36415; 80053; 81001; 82948; 85025; 99284

== ENCOUNTER 2024-11-15 19:09 | Emergency (ER) | payer MEDICAID ==
[~2024-11-15] VITALS: Ht 162.6 cm; Wt 61.4 kg
[2024-11-15 19:10] VITALS: BP 154/87; PULSE 88; RESP 17; TEMP 98.7; O2SAT 98
[2024-11-15] MEDS ORDERED: IBUP-1984 PO (19:43)
[2024-11-15] MEDS ORDERED: LIDO700A32 TD (19:43)
[2024-11-15] MEDS: LIDOcaine 5% patch TP STA (20:00)
[2024-11-15] MEDS: ibuprofen tablet 400 MG TABLET PO ONE (20:00)
== END 2024-11-15 20:05 | disposition home or self-care (01) ==
LOC: ER 19:10
DX: G89.29 Other chronic pain (principal); M25.511 Pain in right shoulder; E11.9 Type 2 diabetes mellitus without complications; E78.00 Pure hypercholesterolemia, unspecified; I10 Essential (primary) hypertension; I25.2 Old myocardial infarction; J45.909 Unspecified asthma, uncomplicated; Z79.899 Other long term (current) drug therapy; Z79.82 Long term (current) use of aspirin; Z79.4 Long term (current) use of insulin; Z86.73 Personal history of transient ischemic attack (TIA), and cerebral infarction without residual deficits
CPT/HCPCS: 99283

== ENCOUNTER 2025-01-19 00:24 | Emergency (ER) | payer MEDICAID ==
[~2025-01-19 00:24] MED LIST changes: +LIDO700A32 TD
== END 2025-01-19 02:25 | disposition home or self-care (01) ==
LOC: ER 00:24
DX: R21 Rash and other nonspecific skin eruption (principal); Z53.21 Procedure and treatment not carried out due to patient leaving prior to being seen by health care provider
CPT/HCPCS: 99283

== ENCOUNTER 2025-02-02 22:37 | Emergency (ER) | payer MEDICAID ==
[~2025-02-02] VITALS: Ht 160 cm; Wt 52.4 kg
[2025-02-02 22:54] LABS: BASOPHILS % (AUTO) 0.2 % (0-1); EOSINOPHILS % (AUTO) 0.1 % (0-6); HEMATOCRIT 42.8 % (42.0-52.0); HEMOGLOBIN 14.4 g/dl (14.0-17.9); LYMPHOCYTES # (AUTO) 0.7 X10'3 (1.1-4.8); LYMPHOCYTES % (AUTO) 3.8 % (21-51); MEAN CORPUSCULAR HEMOGLOBIN 28.4 PG (27.0-31.0); MEAN CORPUSCULAR HGB CONC 33.7 g/dL (33.0-36.5); MEAN PLATELET VOLUME 8.6 FL (7.4-10.4); MONOCYTES # (AUTO) 0.5 X10'3 (0-0.9); MONOCYTES % (AUTO) 2.5 % (2-12); NEUTROPHILS # (AUTO) 18.1 X10'3 (1.8-7.7); NEUTROPHILS % (AUTO) 93.4 % (42-75); PLATELET COUNT 401 X10'3 (140-440); RED BLOOD COUNT 5.09 X10'6 (4.70-6.10); RED CELL DISTRIBUTION WIDTH 13.2 % (11.5-14.5); WHITE BLOOD COUNT 19.4 X10'3 (4.5-11.0)
[2025-02-02 23:10] LABS: ALANINE AMINOTRANSFERASE 38 U/L (12-78); ALBUMIN 3.6 G/DL (3.4-5.0); ALBUMIN/GLOBULIN RATIO 1.2 (1.1-1.5); ALKALINE PHOSPHATASE 94 IU/L (46-116); ANION GAP 12 (8-16); ASPARTATE AMINO TRANSFERASE 19 U/L (10-37); BILIRUBIN,TOTAL 0.8 MG/DL (0.1-1.0); BLOOD UREA NITROGEN 13 MG/DL (7-18); BUN/CREATININE RATIO 14.8 (10.0-20.0); CALCIUM 8.8 MG/DL (8.5-10.1); CHLORIDE 101 MMOL/L (99-107); CREATININE 0.88 MG/DL (0.60-1.10); LIPASE 58 U/L (16-77); POTASSIUM 3.3 MMOL/L (3.5-5.1); SODIUM 138 MMOL/L (135-145); TOTAL CARBON DIOXIDE 24.6 MMOL/L (24-32); TOTAL PROTEIN 6.7 G/DL (6.4-8.2); eCRCL 71 ML/MIN; eGFR > 90 ML/MIN
[2025-02-02 23:18] LABS: GLUCOSE 446 MG/DL (70-104)
[2025-02-02] MEDS: normal saline 1000ml 1,000 ML IV ONE (23:28)
[2025-02-02] MEDS: morphine 4 MG/ML inj SYRINge IV ONE (23:32)
[2025-02-02] MEDS: ondansetron/PF 4mg/2ml inj IV ONE (23:32)
[2025-02-02] MEDS: fentaNYL/PF 50MCG/1 ML 2ML syringe IV ONE (23:59)
[2025-02-03 00:36] LABS: BILIRUBIN,URINE NEGATIVE (Neg); CLARITY,URINE CLEAR (Clear); COLOR,URINE YELLOW (Yellow); GLUCOSE, URINE >=1000 mg/dl (Neg); KETONES,URINE >=80 mg/dl (Neg); LEUKOCYTE ESTERASE ,URINE NEGATIVE (Neg); NITRITES, URINE NEGATIVE (Neg); OCCULT BLOOD,URINE SMALL (Neg); PH,URINE 5.5 (4.8-8.0); PROTEIN,URINE NEGATIVE (Neg); UROBILINOGEN,URINE 0.2 E.U/dL (0.2-1.0)
[2025-02-03 00:44] LABS: UA COLLECTION TYPE VOIDED
[2025-02-03 00:45] LABS: BACTERIA,URINE FEW /HPF (Neg); SQUAMOUS EPITHELIAL CELL,UR FEW /LPF (FEW); WBC,URINE 0-4 /HPF (0-4)
[2025-02-03 01:02] VITALS: BP 150/94; PULSE 77
[2025-02-03] MEDS: ketorolac trometh 15mg/ml vial 15 MG/ML ML IV ONE (01:14)
[2025-02-03] MEDS: dicyclomine 10mg/ml 2ml ampule IM ONE (01:14)
[2025-02-03] MEDS: acetaminophen 325mg tablet PO ONE (03:16)
[2025-02-03] MEDS ORDERED: POLY119P2 PO ×2 (04:38→18:43)
[2025-02-03] MEDS ORDERED: BISA-78 PO (04:38)
[2025-02-03 04:47] VITALS: TEMP 98.2; O2SAT 98
[2025-02-03] MEDS: bisacodyl 5mg tablet.DR PO ONE (04:48)
[2025-02-03] MEDS: methylnaltrexone br 12mg/0.6ml inj***SubQ only SQ ONE (04:49)
[2025-02-03 04:51] VITALS: RESP 15
[2025-02-03] MEDS ORDERED: SENN-360 PO (18:44)
[2025-02-03] MEDS ORDERED: BISA10SU60 RC (18:45)
== END 2025-02-03 04:54 | disposition home or self-care (01) ==
LOC: ER 22:38
DX: K59.00 Constipation, unspecified (principal); E11.9 Type 2 diabetes mellitus without complications; E78.00 Pure hypercholesterolemia, unspecified; I11.9 Hypertensive heart disease without heart failure; I25.10 Atherosclerotic heart disease of native coronary artery without angina pectoris; J45.909 Unspecified asthma, uncomplicated; Z86.73 Personal history of transient ischemic attack (TIA), and cerebral infarction without residual deficits
CPT/HCPCS: 36415; 74176; 80053; 81001; 83690; 84145; 85025; 96372; 96374; 96375; 99285; J0500; J1885; J2212; J2270; J2405; J3010; J7030; 81003

== ENCOUNTER 2025-02-03 10:10 | Emergency (ER) | payer MEDICAID ==
[~2025-02-03] VITALS: Ht 160 cm; Wt 60.0 kg
[~2025-02-03 10:10] MED LIST changes: +BISA-78 PO; +POLY119P2 PO
[2025-02-03 10:38] LABS: BASOPHILS % (AUTO) 0.3 % (0-1); EOSINOPHILS % (AUTO) 0 % (0-6); HEMATOCRIT 44.9 % (42.0-52.0); HEMOGLOBIN 14.9 g/dl (14.0-17.9); LYMPHOCYTES # (AUTO) 0.7 X10'3 (1.1-4.8); LYMPHOCYTES % (AUTO) 4.5 % (21-51); MEAN CORPUSCULAR HEMOGLOBIN 28.3 PG (27.0-31.0); MEAN CORPUSCULAR HGB CONC 33.3 g/dL (33.0-36.5); MEAN CORPUSCULAR VOLUME 85.2 FL (78-98); MEAN PLATELET VOLUME 8.7 FL (7.4-10.4); MONOCYTES # (AUTO) 0.6 X10'3 (0-0.9); NEUTROPHILS # (AUTO) 14.2 X10'3 (1.8-7.7); NEUTROPHILS % (AUTO) 91.2 % (42-75); PLATELET COUNT 389 X10'3 (140-440); RED BLOOD COUNT 5.27 X10'6 (4.70-6.10); RED CELL DISTRIBUTION WIDTH 13.5 % (11.5-14.5); WHITE BLOOD COUNT 15.6 X10'3 (4.5-11.0)
[2025-02-03 10:45] LABS: BILIRUBIN,URINE NEGATIVE (Neg); CLARITY,URINE CLEAR (Clear); COLOR,URINE YELLOW (Yellow); GLUCOSE, URINE >=1000 mg/dl (Neg); KETONES,URINE >=80 mg/dl (Neg); LEUKOCYTE ESTERASE ,URINE NEGATIVE (Neg); NITRITES, URINE NEGATIVE (Neg); OCCULT BLOOD,URINE TRACE-INTACT (Neg); PH,URINE 5.5 (4.8-8.0); PROTEIN,URINE TRACE mg/dl (Neg); UROBILINOGEN,URINE 0.2 E.U/dL (0.2-1.0)
[2025-02-03 10:46] LABS: UA COLLECTION TYPE NON-SPECIFIED
[2025-02-03 10:47] LABS: ALANINE AMINOTRANSFERASE 39 U/L (12-78); ALBUMIN 3.7 G/DL (3.4-5.0); ALBUMIN/GLOBULIN RATIO 1.1 (1.1-1.5); ALKALINE PHOSPHATASE 95 IU/L (46-116); ASPARTATE AMINO TRANSFERASE 25 U/L (10-37); BILIRUBIN,TOTAL 0.7 MG/DL (0.1-1.0); BLOOD UREA NITROGEN 14 MG/DL (7-18); BUN/CREATININE RATIO 13.5 (10.0-20.0); CALCIUM 8.6 MG/DL (8.5-10.1); CREATININE 1.04 MG/DL (0.60-1.10); GLUCOSE 398 MG/DL (70-104); LIPASE 52 U/L (16-77); POTASSIUM 4.4 MMOL/L (3.5-5.1); SODIUM 139 MMOL/L (135-145); TOTAL CARBON DIOXIDE 17.5 MMOL/L (24-32); TOTAL PROTEIN 7.1 G/DL (6.4-8.2); eCRCL 65 ML/MIN; eGFR 90 ML/MIN
[2025-02-03 10:51] LABS: BACTERIA,URINE NONE SEEN /HPF (Neg); RBC,URINE 0-2 /HPF (0-2); SQUAMOUS EPITHELIAL CELL,UR NONE SEEN /LPF (FEW); WBC,URINE 0-4 /HPF (0-4)
[2025-02-03 10:54] LABS: ANION GAP 21 (8-16); CHLORIDE 101 MMOL/L (99-107)
[2025-02-03] MEDS: ringers solution, lacted 1,000 ML IV ONE (12:14)
[2025-02-03] MEDS: ketorolac trometh 15mg/ml vial 15 MG/ML ML IV ONE (12:14)
[2025-02-03] MEDS: diatr meglu/diatrizoate 30ml oral sol.-(3 dose) bottle PO SCH (12:20)
[2025-02-03] MEDS ORDERED: diatr meglu/diatrizoate 30ml oral sol.-(3 dose) bottle ONE (14:31)
[2025-02-03] MEDS: ketamine 50mg/5ml syringe IV ONE (15:24)
[2025-02-03] MEDS ORDERED: iohexol 300mg/ml 100ml inj. ONE (15:37)
[2025-02-03] MEDS: ondansetron/PF 4mg/2ml inj IV ONE (17:35)
[2025-02-03] MEDS: polyethylene glycol 3350 17gm powd pack PO ONE (17:35)
[2025-02-03] MEDS ORDERED: POLY119P2 PO (18:43)
[2025-02-03] MEDS ORDERED: SENN-360 PO (18:44)
[2025-02-03] MEDS ORDERED: BISA10SU60 RC (18:45)
[2025-02-03 19:41] VITALS: BP 148/98; PULSE 80; RESP 18; TEMP 98.7; O2SAT 100
== END 2025-02-03 19:42 | disposition home or self-care (01) ==
LOC: ER 10:11
DX: K59.00 Constipation, unspecified (principal); E11.9 Type 2 diabetes mellitus without complications; E78.00 Pure hypercholesterolemia, unspecified; I10 Essential (primary) hypertension; I25.10 Atherosclerotic heart disease of native coronary artery without angina pectoris; J45.909 Unspecified asthma, uncomplicated; Z86.73 Personal history of transient ischemic attack (TIA), and cerebral infarction without residual deficits; Z79.82 Long term (current) use of aspirin
CPT/HCPCS: 36415; 74177; 80053; 81001; 82948; 83690; 85025; 96361; 96374; 96375; 99285; J1885; J2405; J3490; J7120; Q9963; Q9967

== ENCOUNTER 2025-10-12 09:35 | Emergency (ER) | payer MEDICAID ==
[~2025-10-12] VITALS: Ht 160 cm; Wt 58.1 kg
[~2025-10-12 09:35] MED LIST changes: +BISA10SU60 RC; +CELE-193 PO; +LIDO-52 TD; +LIDO-52 TOP; -LIDO700A32 TD; -LIDO700A32 TOP; -LISI40TA13 PO; +LISI40TA20 PO; +SENN-360 PO
[2025-10-12 09:49] VITALS: TEMP 98.7
--- NOTE | 2025-10-12 12:02 | Physician Documentation ---
History of Present Illness ~ Chief Complaint: Knee Pain Stated Complaint: R KNEE PAIN Time Seen by MD: 11:59 Primary Medical Doctor: MIGUEL ANGEL BURNS This is a 55-year-old male who presents to the emergency department with right knee pain, patient reports pain is chronic and he is scheduled for knee replacement with Dr. Baca, patient is requesting a knee brace. Patient reports his prescribed medication for arthritis pain is not fully effective. Tetanus witin 5 years: No Medication Reconciliation Allergies: Coded Allergies: No Known Allergies (Unverified , 09/15/25) Scheduled Albuterol Sulfate (Ventolin Hfa), 2 PUFFS INH Q4HPRN, (Reported) Aspirin (Ecotrin*), 1 TAB PO DAILY, (Reported) Bisacodyl (Dulcolax), 4 TAB PO ONCE Bisacodyl (Dulcolax), 1 SUPP RC DAILY Budesonide/Formoterol Fumarate (Symbicort 80-4.5 Mcg Inhaler), 2 PUFFS PO BID, (Reported) Celecoxib* (Celebrex*), 1 CAP PO Q12H Chlorthalidone (Chlorthalidone), 1 TAB PO DAILY, (Reported) Insulin Aspart (Novolog), 10 UNITS SQ TID Insulin Degludec (Tresiba Flextouch U-100), 15 UNITS SQ HS Lactobacillus Casei/Folic Acid (Restora Rx Capsule), 1 CAP PO DAILY Lidocaine (Lidoderm), 1 PATCH TOP DAILY Lidocaine (Lidoderm), 1 PATCH TD DAILY Lisinopril* (Lisinopril*), 40 MG PO DAILY, (Reported) Loratadine (Loratadine), 1 TAB PO DAILY, (Reported) Metformin HCl (Metformin HCl), 2 TAB PO BID Polyethylene Glycol 3350 (Miralax), 17 GM PO DAILY Polyethylene Glycol 3350 (Miralax), 17 GM PO DAILY Sennosides (Senna), 2 TAB PO Q12H Scheduled PRN Fluticasone Propionate (Fluticasone Propionate), 1-2 SPRAYS BOTHNARES DAILY PRN for allergies, (Reported) Nitroglycerin SL* (Nitrostat SL*), 1 TAB SL Q5MIN PRN for Chest pain Q5min PRNx3-call MD, (Reported) Past Medical History Past Medical History: CVA/TIA/Stroke, High Cholesterol, Hypertension, Myocardial Infarction, Asthma, Bronchitis, Diabetes, Extremity Fracture Past Surgical History: noncontributory Patient History: (CAD) Coronary arteriosclerosis FATHER, Onset:40's - 50 FAMILY/OTHER, Onset:40's - 50 ([place]) Myocardial infarction MOTHER, Onset:60 years & older Alcohol Use: None Drug Use: none Lives with: Spouse Lives In: Home Occupation: employed Review of Systems ROS As stated above in the HPI, otherwise all systems are reviewed and negative. Physical Exam Vital Signs: Temperature: 98.7, Source: Temporal, Heart Rate: 73, Respiratory Rate: 18, BP: 167/105, Pulse Oximetry: 98, Weight: 58.100 Oxygen Flow Rate: 0 Physical Exam VITALS: Reviewed and as above. GENERAL: Alert, nontoxic appearing, no apparent distress, limping gait RESPIRATORY: No increased work of breathing, no respiratory distress, speaking in full clear sentences CV: Capillary refill intact to right foot MUSCULOSKELETAL: Right knee tender palpation, no micro motion tenderness NEURO: Sensation intact to right foot Progress Results/Orders Results/Orders Orders - SARAH REYNOLDS Ortho Orders (10/12/25 ) Completed Orders - SARAH REYNOLDSP Ketorolac Trometh 15mg/Ml Vial (Toradol (10/12/25 12:00) Vital Signs 10/12/25 10/12/25 10/12/25 09:49 12:32 12:39 Temp 98.7 Pulse 73 78 Resp 18 14 16 B/P (MAP) 167/105 134/98 Pulse Ox 98 100 O2 Flow Rate 0 Medical Decision Making Additional information obtaine: N/A Findings This 55-year-old male with a history of chronic right knee pain who was awaiting a scheduled knee replacement with an orthopedic surgeon, presented with a request for a knee brace due to continued right knee pain worse with ambulation, physical exam demonstrated generally tender knee which patient reports has unchanged, it is reassuring the limb is neurovascularly intact. Given pain is worse with ambulation and patient does have knee replacement scheduled soon he will be placed on crutches to rest the knee to prevent further aggravation of chronic knee pain, patient was medicated in the department for pain and we will be discharged to continue previously prescribed pain medications at home. Patient provided follow up instructions, return to care precautions, and home c are instructions which he verbalized understanding of. General Diff Dx:Considerations: Include: Abrasion, Contusion, Fracture, Hematoma, Laceration, Malunion, Neurovascular injury, Sprain, Ulcer Knee Diff Dx:Considerations: Include: Abrasion, Arthritis, DJD, Gout, Hematoma, Laceration, Meniscus injury, Neurovascular injury, Rheumatoid arthritis, Septic, Sprain Ankle Diff Dx:Considerations: Unlikely: Abrasion, Arthritis, Contusion, DJD, Fracture-metatarsal, Fracture-fibula, Fracture-tarsal, Fracture-tibia, Gout, Hematoma, Laceration, Malunion, Neurovascular injury, Nonunion, Open fracture, Osteomyelitis, Rheumatoid arthritis, Sprain, Septic, Ulcer, Other Foot Diff Dx:Considerations: Unlikely: Abrasion, Arthritis, Cellulitis, Contusion, Dislocation, DJD, Fracture-metatarsal, Fracture-phalynx, Fracture- tarsal, Gout, Hematoma, Ingrown toenail, Laceration, Malunion, Neurovascular injury, Open fracture, Paronychia, Puncture, Rheumatoid, Sprain, Septic, Subungual hematoma, Ulcer, Other Toe Diff Dx:Considerations: Unlikely: Abrasion, Cellulitis, Contusion, Dislocation, Felon, Fracture, Hematoma, Laceration, Neurovascular injury, Open fracture, Paronychia, Subungual hematoma, Other Departure Time of Disposition: 12:33 Disposition: 01 HOME / SELF CARE / HOMELESS Impression: Primary Impression: Knee pain Qualified Codes: M25.561 - Pain in right knee; G89.29 - Other chronic pain Condition: Improved Discharge Instructions: Arthritis Additional Instructions: Follow up with Dr. Baca as scheduled, use the crutches to rest your knee. Please follow up with your primary care provider in the next few days. Please return to the emergency department for any new or worsening concerning symptoms. Referrals: NO PRIMARY CARE PROVIDER (PCP) Education Educated: Patient Educated regarding: diagnosis, treatment, prognosis, need for follow up Signature Scribe Signature: No scribe Attestation: The note accurately reflects work and decisions made by me.CHRISTELLE Vicente 10/13/25 09:08 SARAH REYNOLDS Oct 12, 2025 12:02
[2025-10-12] MEDS: ketorolac trometh 15mg/ml vial 15 MG/ML ML IM ONE (12:32)
[2025-10-12 12:39] VITALS: BP 134/98; PULSE 78; RESP 16; O2SAT 100
== END 2025-10-12 12:43 | disposition home or self-care (01) ==
LOC: ER 09:36
DX: G89.29 Other chronic pain (principal); M25.561 Pain in right knee; E11.9 Type 2 diabetes mellitus without complications; E78.00 Pure hypercholesterolemia, unspecified; I10 Essential (primary) hypertension; I25.10 Atherosclerotic heart disease of native coronary artery without angina pectoris; I25.2 Old myocardial infarction; M19.90 Unspecified osteoarthritis, unspecified site; Z86.73 Personal history of transient ischemic attack (TIA), and cerebral infarction without residual deficits; Z79.899 Other long term (current) drug therapy; Z79.82 Long term (current) use of aspirin
CPT/HCPCS: 96372; 99283; J1885; A6449